=== PATIENT | male | born 2000 | race Two or more races ===

== ENCOUNTER 2022-10-18 16:42 | Inpatient (IN) | payer OTHER, SELFPAY ==
[2022-10-18] VITALS (7 sets, daily range): BP systolic 105–144; BP diastolic 64–90; PULSE 75–116; RESP 16–20; TEMP 36.4–36.7; O2SAT 96–99; BMI 20.5
--- OUTSIDE RECORDS SUMMARY | 2022-10-18 17:10 | XMS_ITS | Continuity of Care Document ---
:2000 Author Organization [facility] Address [address] [place] [address]- Care Team Providers Name Role Phone Not on Staff, PCP Primary Care Physician Unavailable Encounter [facility] Date(s): 05/07/22 - 05/14/22 [facility] [address], [place] [address] Attending Physician: Vivian Berger Allergies, Adverse Reactions, Alerts No Known Medication Allergies Medications ceftriaxone 500 mg injectable powder for injection = 500 mg, Intramuscular, Once, # 1.2 mL, 0 Refills, Soft Stop, 05/07/22 15:09:00 EDT Start Date: 05/07/22 Status: Ordereddoxycycline hyclate 100 mg oral capsule 1 capsule = 100 mg, By Mouth, Once, # 1 capsule, 0 Refills, Soft Stop, 05/07/22 15:11:00 EDT, Partial fill upon patient request if the prescription is for a schedule II opioid drug. Start Date: 05/07/22 Status: Ordered Vital Signs Most recent to oldest [Reference Range]: 1 Oxygen Saturation [94-100 %] 100 % (05/07/22 2:44 PM) Pulse Rate [55-90 bpm] 77 bpm (05/07/22 2:44 PM) Blood Pressure [90-138/55-84 mm Hg] 113/60 mm Hg (05/07/22 2:44 PM) Temperature [96.8-100.4 DegF] 97.7 DegF (05/07/22 2:44 PM) Blood pressure sites Arm, right (05/07/22 2:44 PM) Temperature Route Temporal (05/07/22 2:44 PM)
--- OUTSIDE RECORDS SUMMARY | 2022-10-18 17:10 | XMS_ITS | Continuity of Care Document ---
:2000 Author Organization [facility] Address [address] [place] [address]- Care Team Providers Name Role Phone Not on Staff, PCP Primary Care Physician Unavailable Encounter [facility] Date(s): 05/07/22 - 06/06/22 [facility] [address], [place] [address] Attending Physician: Jessica George Admitting Physician: Jessica George Referring Physician: Jessica George Allergies, Adverse Reactions, Alerts No Known Medication [...]
--- NOTE | 2022-10-18 17:19 | ED.PSYCH ---
HPI - Psych General Chief Complaint: Psychiatric Symptoms Stated Complaint: overdose 15 pills Time Seen by Provider: 10/18/22 17:00 Source: patient Mode of arrival: ambulatory Limitations: no limitations History of Present Illness HPI Narrative: Patient has history of depression felt suicidal took 15 tablets of 325 acetaminophen at 16:00 patient did for the 1st time no other medicine taken no complaints at this time no vomiting Related Data Allergies Allergy/AdvReac Type Severity Reaction Status Date / Time No Known Allergies Allergy Verified 10/18/22 17:26 Review of Systems Review of Systems: Yes all other systems are reviewed and are negative [facility] Social History Social History Advance Directives: No Advance Directives Information Provided: No Physical Exam Vital Signs: Vital Signs: Last Vital Signs Temp 97.8 F 10/18/22 21:53 Pulse 83 10/18/22 21:53 Resp 16 10/18/22 21:53 BP 105/64 10/18/22 21:53 Pulse Ox 97 10/18/22 21:53 O2 Del Method 10/18/22 21:53 BMI result Body Mass Index 20.5 Appearance: Alert. Oriented X3. No acute distress. Eyes: PERRLA, No Nystagmus ENT: Pharynx normal. Oral Mucosa moist Neck: Normal inspection. Neck supple. CVS: Normal heart rate and rhythm. Pulses normal. Respiratory: No respiratory distress. Equal air entry bilateral, no wheezing/rales/rhonchi Abdomen: Soft and nontender. Bowel sounds are present, no mass palpable, no CVA tenderness Skin: Skin warm and dry. Normal skin color. Normal skin turgor. Extremities: No lower extremity edema. No calf tenderness psych: Depressed no current suicidal ideation no hallucination/ delusion Neuro: Oriented X 3. No motor deficit. No sensory deficit.No cerebellar signs , cranial nerves II-XII intact Medications Administered Discontinued Medications Generic Name Dose Route Start Last Admin Trade Name Freq PRN Reason Stop Dose Admin Charcoal 50 gm 10/18/22 17:28 10/18/22 17:53 Activated Charcoal 50 Gm/240 Ml Oral.Susp PO 10/18/22 17:29 50 gm ONCE ONE Administration MDM - Psych MDM Narrative Medical decision making narrative: Patient with depression and suicidal feeling overdose on acetaminophen, nontoxic level medically cleared. Incidentally patient noticed to be COVID positive asymptomatic saturating 97 % on room air. Will consult in for evaluation Differential Diagnosis Differential diagnosis: Likely depression Lab Data Attestation: I reviewed the patient's lab results. Result diagrams: 10/18/22 18:10 10/18/22 18:10 Labs: Lab Results 10/18/22 10/18/22 10/18/22 Range/Units 17:47 17:47 18:10 WBC 9.9 (4.8-10.8) X10*3/uL RBC 5.07 (4.60-5.80) X10*6/uL Hgb 15.4 (14.0-18.0) g/dl Hct 44.5 (42.0-52.0) % MCV 87.8 (80.0-98.0) fL MCH 30.4 (27.0-33.0) pg MCHC 34.6 (31.0-36.0) g/dl RDW 12.0 (11.0-16.0) % Plt Count 221 (160-400) X10*3/uL MPV 10.9 (9.4-12.4) fL Immature Gran % (Auto) 0.3 (0.0-0.4) % Neut % (Auto) 76.6 H (45-73) % Lymph % (Auto) 13.8 L (20-40) % [place] % (Auto) 7.8 (2-11) % Eos % (Auto) 1.1 (0-4) % Baso % (Auto) 0.4 (0-2) % Lymph # (Auto) 1.4 (1.2-4.9) X10*3/uL [place] # (Auto) 0.8 (0.1-1.2) X10*3/uL Eos # (Auto) 0.1 (0.0-0.4) X10*3/uL Baso # (Auto) 0.0 (0.0-0.2) X10*3/uL Abs Immat Gran (auto) 0.03 (0.00-0.03) X10*3/uL Absolute Neuts (auto) 7.6 (2.0-8.3) x10*3/uL Absolute Nucleated RBC 0.000 (0.0-0.012) X10*3/uL Nucleated RBC % (auto) 0.0 (0.0-0.2) /100WBC Sodium (135-145) mmol/L Potassium (3.3-5.1) mmol/L Chloride (96-108) mmol/L Carbon Dioxide (22-29) mmol/L Anion Gap (12-20) BUN (9-16) mg/dL Creatinine (0.5-1.4) mg/dL Estim Creat Clear Calc Estimated GFR Random Glucose (60-115) mg/dL Calcium (8.4-10.2) mg/dL Total Bilirubin (0.0-1.0) mg/dL AST (5-37) U/L ALT (0-40) U/L Alkaline Phosphatase (39-117) U/L Total Protein (6.5-8.0) g/dL Albumin (3.5-5.0) g/dL Salicylates (15-30) mg/dL Urine Opiates Screen Not Detected (Not Detect) Urine Fentanyl Screen Not Detected (Not Detect) Acetaminophen (<30) mcg/mL Ur Barbiturates Screen Not Detected (Not Detect) Ur Phencyclidine Scrn Not Detected (Not Detect) Ur Amphetamines Screen Not Detected (Not Detect) U Benzodiazepines Scrn Not Detected (Not Detect) Urine Cocaine Screen Not Detected (Not Detect) U Marijuana (THC) Screen POSITIVE H (Not Detect) COVID-19 (YAMILET) Positive A (Negative) COVID-19 Clin Com See Note 10/18/22 10/18/22 Range/Units 18:10 20:20 WBC (4.8-10.8) X10*3/uL RBC (4.60-5.80) X10*6/uL Hgb (14.0-18.0) g/dl Hct (42.0-52.0) % MCV (80.0-98.0) fL MCH (27.0-33.0) pg MCHC (31.0-36.0) g/dl RDW (11.0-16.0) % Plt Count (160-400) X10*3/uL MPV (9.4-12.4) fL Immature Gran % (Auto) (0.0-0.4) % Neut % (Auto) (45-73) % Lymph % (Auto) (20-40) % [place] % (Auto) (2-11) % Eos % (Auto) (0-4) % Baso % (Auto) (0-2) % Lymph # (Auto) (1.2-4.9) X10*3/uL [place] # (Auto) (0.1-1.2) X10*3/uL Eos # (Auto) (0.0-0.4) X10*3/uL Baso # (Auto) (0.0-0.2) X10*3/uL Abs Immat Gran (auto) (0.00-0.03) X10*3/uL Absolute Neuts (auto) (2.0-8.3) x10*3/uL Absolute Nucleated RBC (0.0-0.012) X10*3/uL Nucleated RBC % (auto) (0.0-0.2) /100WBC Sodium 141 (135-145) mmol/L Potassium 4.8 (3.3-5.1) mmol/L Chloride 102 (96-108) mmol/L Carbon Dioxide 27 (22-29) mmol/L Anion Gap 17 (12-20) BUN 13 (9-16) mg/dL Creatinine 0.96 (0.5-1.4) mg/dL Estim Creat Clear Calc 92.9 Estimated GFR > 60 Random Glucose 90 (60-115) mg/dL Calcium 9.8 (8.4-10.2) mg/dL Total Bilirubin 0.6 (0.0-1.0) mg/dL AST 22 (5-37) U/L ALT 23 (0-40) U/L Alkaline Phosphatase 83 (39-117) U/L Total Protein 8.2 H (6.5-8.0) g/dL Albumin 4.8 (3.5-5.0) g/dL Salicylates < 5.0 L (15-30) mg/dL Urine Opiates Screen (Not Detect) Urine Fentanyl Screen (Not Detect) Acetaminophen 26 16 (<30) mcg/mL Ur Barbiturates Screen (Not Detect) Ur Phencyclidine Scrn (Not Detect) Ur Amphetamines Screen (Not Detect) U Benzodiazepines Scrn (Not Detect) Urine Cocaine Screen (Not Detect) U Marijuana (THC) Screen (Not Detect) COVID-19 (YAMILET) (Negative) COVID-19 Clin Com Discharge Plan Discharge Clinical Impression: Suicidal ideation, Depression, COVID-19 Patient Disposition: Still a Patient Interventions: [place]-Suicide Risk Severity Scale Last Done: 10/18/22 19:42
[2022-10-18] MEDS: Activated charcoaL 50 GM/240 ML ORAL.SUSP PO (17:53)
[2022-10-18 18:06] LABS: COVID-19 Test Positive (Negative); IDNOW Serial# 16C4AD1C
[2022-10-18 18:12] LABS: Amphetamine Screen Urine Not Detected (Not Detect); Barbiturates, Urine Not Detected (Not Detect); Benzodiazepines Screen Urine Not Detected (Not Detect); Cannabinoid Screen Urine POSITIVE (Not Detect); Cocaine Screen Urine Not Detected (Not Detect); Fentanyl, urine Not Detected (Not Detect); Opiate Screen Urine Not Detected (Not Detect); Phencyclidine Screen Urine Not Detected (Not Detect)
[2022-10-18 18:15] LABS: MANUAL DIFF FLAG NO
[2022-10-18 18:16] LABS: Basophils Percent Auto 0.4 % (0-2); Eosinophils Absolute Auto 0.1 X10*3/uL (0.0-0.4); Eosinophils Percent Auto 1.1 % (0-4); Hematocrit 44.5 % (42.0-52.0); Hemoglobin 15.4 g/dl (14.0-18.0); Imm Gran Abs Auto 0.03 X10*3/uL (0.00-0.03); Imm Gran Pct Auto 0.3 % (0.0-0.4); Lymphocytes Absolute Auto 1.4 X10*3/uL (1.2-4.9); Lymphocytes Percent Auto 13.8 % (20-40); Mean Corpuscular HGB Conc 34.6 g/dl (31.0-36.0); Mean Corpuscular Hemoglobin 30.4 pg (27.0-33.0); Mean Corpuscular Volume 87.8 fL (80.0-98.0); Mean Platelet Volume 10.9 fL (9.4-12.4); Monocytes Absolute Auto 0.8 X10*3/uL (0.1-1.2); Monocytes Percent Auto 7.8 % (2-11); Neutrophils Absolute Auto 7.6 x10*3/uL (2.0-8.3); Neutrophils Percent Auto 76.6 % (45-73); Platelet Count 221 X10*3/uL (160-400); Red Blood Count 5.07 X10*6/uL (4.60-5.80); White Blood Count 9.9 X10*3/uL (4.8-10.8)
[2022-10-18 19:09] LABS: Acetaminophen LAB 26 mcg/mL (<30); Alanine Aminotransferase 23 U/L (0-40); Albumin Level 4.8 g/dL (3.5-5.0); Alkaline Phosphatase 83 U/L (39-117); Anion Gap 17 (12-20); Aspartate Amino Transferase 22 U/L (5-37); Bilirubin Total 0.6 mg/dL (0.0-1.0); Blood Urea Nitrogen 13 mg/dL (9-16); Calcium 9.8 mg/dL (8.4-10.2); Carbon Dioxide 27 mmol/L (22-29); Chloride 102 mmol/L (96-108); Creatinine Clr Calc Pharmacy 92.9; Estimated Glomerular Filt Rate > 60; Glucose Random 90 mg/dL (60-115); Potassium 4.8 mmol/L (3.3-5.1); Salicylate < 5.0 mg/dL (15-30); Sodium 141 mmol/L (135-145); Total Protein 8.2 g/dL (6.5-8.0)
--- NOTE | 2022-10-18 19:51 | PC.NURSE ---
Care of patient assumed at 1900. He is alert, oriented x4, and calmly seated in stretcher within eyesight of 1:1 sitter. He endorses feelings of depression and admits to trying to end his life earlier by taking too many tylenol- him and his girlfriend recently broke up. Physically, patient states he feels good, vitals are stable. COVID + precautions in place- O2 saturations >96% on RA and patient denies SOB. He denies abdominal pain or nausea at this time as well. Safety maintained.
[2022-10-18 20:57] LABS: Acetaminophen LAB 16 mcg/mL (<30)
--- NOTE | 2022-10-18 21:33 | PC.NURSE ---
[facility] referral placed at this time by this RN.
--- NOTE | 2022-10-18 23:46 | PC.NURSE ---
This RN speaks with [facility] on the phone now- they are on their way to speak with the patient shortly.
--- NOTE | 2022-10-19 00:33 | PC.NURSE ---
DEBORAH bedside speaking with patient using drying tumbler operator now.
[2022-10-19 03:17] VITALS: RESP 16
--- NOTE | 2022-10-19 06:20 | PC.NURSE ---
Assumed care of patient.
[2022-10-19 09:59] VITALS: BP 138/90; PULSE 81; RESP 16; TEMP 36.6; O2SAT 97
--- NOTE | 2022-10-19 14:51 | PC.NURSE ---
Pt seen this date for individual OT tx. Upon approach pt presents exuberant, guarded, and superficial during brief interview with this typewriter operator automatic. Pt denies any SI stating I feel great! I'm ready to go home . Pt is pleasant and cooperative however does not with to continue conversation with this typewriter operator automatic. Pt happily excepts coloring pages, word finds, and sensory item. Pts attending nurse notified and aware of pts current mood.
[2022-10-20 00:35] VITALS: BP 130/64; PULSE 70; RESP 16; TEMP 36.3; O2SAT 97
--- NOTE | 2022-10-20 05:18 | PC.NURSE ---
Patient slept through the night, no distress observed/reported, behavior pleasant and in good control, COVID + follows quarantine direction appropriately, coherent thought process, patient is currently not on any medication, disposition per [facility] is section 12 inpatient bed search, pre-accepted to for 10/20/2022 per care team, VSS, will continue to monitor.
--- NOTE | 2022-10-20 16:00 | PC.NURSE ---
Nurse to nurse given
--- NOTE | 2022-10-20 19:06 | PC.ADMIT ---
Pt is a 22 year old male who arrived to on a cv status. Pt is covid + and tox screen + for THC. Per chart review, pt arrived to [facility] via public transportation secondary to taking 15 pills of Tylenol with the intent to kill himself. Pt reported that his relationship with his girlfriend recently ended and he has been experiencing personal issues for the last four months. During the admit, pt was clam and pleasant. Pt denied SI/HI/VH/AH. Pt understood that he was covid positive and wanted to do what he had to do in order to discharge. Provider notified and called for admission orders. Start treatment plan and monitor for safety.
[2022-10-21 08:57] LABS: Alanine Aminotransferase 20 U/L (0-40); Albumin Level 4.6 g/dL (3.5-5.0); Alkaline Phosphatase 77 U/L (39-117); Aspartate Amino Transferase 19 U/L (5-37); Bilirubin Direct 0.5 mg/dL (0.0-0.5); Bilirubin Total 1.5 mg/dL (0.0-1.0); Free T4 (Free Thyroxine) 1.14 ng/dL (0.71-1.85); Thyroid Stimulating Hormone 1.04 uIU/mL (0.32-4.0); Total Protein 7.9 g/dL (6.5-8.0)
[2022-10-21 09:11] LABS: Folate 15.5 ng/mL (> or = 4.0); Vitamin B12 603 pg/mL (200-900)
[2022-10-21 09:57] VITALS: BP 114/72; PULSE 95; RESP 18; TEMP 36.2; O2SAT 97
--- NOTE | 2022-10-21 10:06 | HO.PSYADMNOT ---
HPI Date of Service: 10/21/22 Chief Complaint: Suicide attempt Sources of Information: patient interviewed, chart reviewed and crisis/core team assessment reviewed HPI Subjective Notes: Alex Warning (given and understands) and Conditional Voluntary Narrative: Mr. Wyman is a 22 year-old male with no previous psych hx. Pt self presented to [facility] after taking intentional OD of 15 tablets of tylenol after argument with GF. In the ED- acetaminophen level wnl at 26, subsequent rechecked also wnl at 16mcg/ml. Utox is positive for cannabinoids. On the unit, Mr. Wyman reports that he had argument with GF. He now regrets intentional OD. He reports as soon as he took 15 tab of tylenol he realized that it had been impulsive, that he did not want to and took the public transportation to come to the hospital. Pt adamantly denies suicidal or homicidal ideation. He denies hx of suicide attempts. He denies feeling depressed or suicidal even prior to this incident. Pt denies problem sleeping or eating. He presents as future oriented in that he states he has too much to live for such as his family, plans in the future to become an artist (davis). He denies hx of hallucinations or s/s of hypomania or manuel. Past Psychiatric History: Inpt: none OP: none Past trials: none Hx of suicide attempt: none Medical Evaluation Reviewed: Yes + covid- denies SOB, no s/s of respiratory failure or distress. [facility] Family History: none Social History: Born in [place]. not , no children. recently broke up with GF. Substance History: reports using cannabis daily since age 13. Trauma History: denies. Diagnostics Vital Signs (24Hr): Vital Signs - 24 hr 10/21/22 09:57 Temperature 97.1 F Pulse Rate 95 Respiratory Rate 18 Blood Pressure 114/72 Pulse Oximetry 97 Oxygen Delivery Method Room Air BMI result Body Mass Index 20.5 Labs Results: 10/18/22 18:10 10/18/22 18:10 Labs: Laboratory Results - last 48 hr 10/21/22 10/21/22 07:32 07:32 Total Bilirubin 1.5 H Direct Bilirubin 0.5 AST 19 ALT 20 Alkaline Phosphatase 77 Total Protein 7.9 Albumin 4.6 Vitamin B12 603 Folate 15.5 TSH 1.04 Free T4 1.14 Meds/Allergies Meds Home Medications Medication Instructions Recorded Confirmed Type No Known Home Meds 10/19/22 10/19/22 History Allergies Allergies Allergy/AdvReac Type Severity Reaction Status Date / Time No Known Allergies Allergy Verified 10/18/22 17:26 Mental Status Exam Mental Status Exam Narrative: Appearance: wearing hospital gown, good hygiene, in NAD Behavior: cooperative Psychomotor: no agitation or retardation noted Speech: clear, normal rate/rhythm/volume, spontaneous TP: linear TC: no signs of psychosis, future oriented, regrets impulsive OD, wants to go home soon Mood: better Affect: congruent, brightens at times SI: adamantly denies HI: none VH/AH: none Delusions: none Insight/judgment: fair x 2. Memory/cog: alert, oriented x 3. grossly intact to conversational testing. Assessment & Plan Assessment & Plan (1) Adjustment disorder with anxiety: Status: Acute Code(s): F43.22 - Adjustment disorder with anxiety Plan Mr. Wyman is a 22 year-old male with no prior psych hx. He took public transportation to come to [facility] after he impulsively took intentional OD on 15 tabs of tylenol in context of recent break up with GF. In the ED- tylenol level wnl (initially 26, then 16 mcg/ml). No further medical complications. Pt adamantly denies suicidal ideation. Pt regrets what appears to be impulsive OD as pt reports as soon as he took the tablets he decided to come to the hospital. He presents as future oriented. We discussed risks, benefits and alternative treatment options. PLAN 1. admit to , CV, 15 minutes checks for safety 2. obtain collateral information 3. Aftercare planning. Patient educated on: diagnosis Reason for continued inpatient stay Substantial Risk for: harm to self
[2022-10-21 17:18] VITALS: BP 130/62; PULSE 85; TEMP 36.9; O2SAT 98
[2022-10-22 06:00] VITALS: BP 133/75; PULSE 98; RESP 18; TEMP 36.9; O2SAT 99
--- NOTE | 2022-10-22 12:46 | P.PNPSI_ITS ---
Subjective Subjective Date of Service: 10/22/22 Reason For Visit: Suicide attempt Subjective Notes: Conditional Voluntary Interim History: Pt reports feeling better. He reports he slept well. No SI/HI. He keeps reporting he regrets OD and that he has multiple reasons to be alive and grateful for. He reports sister is only support here in [place] and she is aware he is here and supportive. He denies any symptoms related to covid- no SOB, afebrile, no signs of respiratory distress. Medication Compliance: Yes Side effects from medications: No Attending Groups: No (due to covid) Review of Systems Review of Systems Yes all other systems are reviewed and are negative Constitutional: Reports no additional constitutional complaints Eyes: Reports no additional eye complaints Mental Status Exam Mental Status Exam Narrative: Appearance: wearing hospital gown, good hygiene, in NAD Behavior: cooperative Psychomotor: no agitation or retardation noted Speech: clear, normal rate/rhythm/volume, spontaneous TP: linear TC: no signs of psychosis, future oriented, regrets impulsive OD, wants to go home soon Mood: better Affect: congruent, brightens at times SI: adamantly denies HI: none VH/AH: none Delusions: none Insight/judgment: fair x 2. Memory/cog: alert, oriented x 3. grossly intact to conversational testing. Diagnostics Vital Signs (24Hr): Vital Signs - 24 hr 10/21/22 17:18 10/22/22 06:00 Temperature 98.4 F 98.4 F Pulse Rate 85 98 Respiratory Rate 18 Blood Pressure 130/62 133/75 Pulse Oximetry 98 99 Oxygen Delivery Method Room Air Room Air BMI result Body Mass Index 20.5 Labs Results: 10/18/22 18:10 10/18/22 18:10 Labs: Laboratory Results - last 48 hr 10/21/22 10/21/22 07:32 07:32 Total Bilirubin 1.5 H Direct Bilirubin 0.5 AST 19 ALT 20 Alkaline Phosphatase 77 Total Protein 7.9 Albumin 4.6 Vitamin B12 603 Folate 15.5 TSH 1.04 Free T4 1.14 Medications Medications Current Medications Acetaminophen (Acetaminophen 325 Mg Tablet) 650 mg PO Q6H PRN PRN Reason: Headache/Pain Mild Scale (1-3) Al Hydroxide/Mg Hydroxide (Magnesium Hydrox/Alum Hydrox 30 Ml Oral.Susp) 30 ml PO Q6H PRN PRN Reason: Heartburn/Nausea Hydroxyzine HCl (Hydroxyzine Hcl 25 Mg Tablet) 25 mg PO Q6H PRN PRN Reason: Anxiety Magnesium Hydroxide (Milk Of Magnesia 30 Ml Oral.Susp) 30 ml PO DAILY PRN PRN Reason: Constipation Nicotine Polacrilex (Nicotine Polacrilex 2 Mg Gum) 4 mg BUCCAL Q2H PRN PRN Reason: Nicotine Cravings Trazodone HCl (Trazodone Hcl 50 Mg Tablet) 50 mg PO BEDTIME PRN PRN Reason: Insomnia Allergies Allergies Allergy/AdvReac Type Severity Reaction Status Date / Time No Known Allergies Allergy Verified 10/18/22 17:26 Assessment & Plan Assessment & Plan (1) Adjustment disorder with anxiety: Status: Acute Code(s): F43.22 - Adjustment disorder with anxiety Plan Mr. Wyman is a 22 year-old male with no prior psych hx. He took public transportation to come to [facility] after he impulsively took intentional OD on 15 tabs of tylenol in context of recent break up with GF. In the ED- tylenol level wnl (initially 26, then 16 mcg/ml). No further medical complications. Pt adamant ly denies suicidal ideation. Pt regrets what appears to be impulsive OD as pt reports as soon as he took the tablets he decided to come to the hospital. He presents as future oriented. We discussed risks, benefits and alternative treatment options. PLAN 1. admit to M5, CV, 15 minutes checks for safety 2. obtain collateral information 3. Aftercare planning. 10/22 continue tx. collateral information and if no safety concern pt can be discharge soon. I spent minutes with the patient and/or on the patient floor today, greater than?50% of which was spent counseling/coordinating care. Reason for contiued inpatient stay Substantial Risk for: stable for discharge
[2022-10-22 18:00] VITALS: BP 103/59; PULSE 89; TEMP 36.7; O2SAT 95
[2022-10-22] MEDS: Acetaminophen 325 MG TABLET 650 MG PO (20:50)
[2022-10-23] MEDS: Acetaminophen 325 MG TABLET 650 MG PO ×4 (01:57→22:42)
[2022-10-23] MEDS: traZODone HCL 50 MG TABLET PO ×2 (01:57→22:42)
[2022-10-23 09:21] VITALS: BP 121/75; PULSE 86; RESP 18; TEMP 36.4; O2SAT 100
--- NOTE | 2022-10-23 10:00 | HO.PSYCHPN ---
Subjective Subjective Date of Service: 10/23/22 Reason For Visit: Suicide attempt Interim History: Patient seen and discussed with RN. PAtient seen in his room. He was upbeat and reported all he is thinking about is being discharged. He continues to be consistent in his report that his gesture was impulsive and that he regretted taking the medications and sought help minutes after he had the ingestion. Pt reports feeling better. He reports he slept well. No SI/HI. He denies any symptoms related to covid- no SOB, afebrile, no signs of respiratory distress. Review of Systems Review of Systems Yes all other systems are reviewed and are negative Constitutional: Reports no additional constitutional complaints Eyes: Reports no additional eye complaints Mental Status Exam Mental Status Exam Narrative: Appearance: wearing hospital gown, good hygiene, in NAD Behavior: cooperative Psychomotor: no agitation or retardation noted Speech: clear, normal rate/rhythm/volume, spontaneous TP: linear TC: no signs of psychosis, future oriented, regrets impulsive OD, wants to go home soon Mood: better Affect: congruent, brightens at times SI: adamantly denies HI: none VH/AH: none Delusions: none Insight/judgment: fair x 2. Memory/cog: alert, oriented x 3. grossly intact to conversational testing. Diagnostics Vital Signs (24Hr): Vital Signs - 24 hr 10/23/22 09:21 Temperature 97.6 F Pulse Rate 86 Respiratory Rate 18 Blood Pressure 121/75 Pulse Oximetry 100 Oxygen Delivery Method Room Air BMI result Body Mass Index 20.5 Labs Results: 10/18/22 18:10 10/18/22 18:10 Medications Medications Current Medications Acetaminophen (Acetaminophen 325 Mg Tablet) 650 mg PO Q6H PRN PRN Reason: Headache/Pain Mild Scale (1-3) Last Admin: 10/23/22 14:49 Dose: 650 mg Al Hydroxide/Mg Hydroxide (Magnesium Hydrox/Alum Hydrox 30 Ml Oral.Susp) 30 ml PO Q6H PRN PRN Reason: Heartburn/Nausea Benzocaine (Benzocaine 20 % Oral Gel 9 Gm Tube) 1 appl MUCOUS MEM QID PRN; Protocol PRN Reason: toothache Last Admin: 10/23/22 14:53 Dose: 1 appl Hydroxyzine HCl (Hydroxyzine Hcl 25 Mg Tablet) 25 mg PO Q6H PRN PRN Reason: Anxiety Magnesium Hydroxide (Milk Of Magnesia 30 Ml Oral.Susp) 30 ml PO DAILY PRN PRN Reason: Constipation Nicotine Polacrilex (Nicotine Polacrilex 2 Mg Gum) 4 mg BUCCAL Q2H PRN PRN Reason: Nicotine Cravings Trazodone HCl (Trazodone Hcl 50 Mg Tablet) 50 mg PO BEDTIME PRN PRN Reason: Insomnia Last Admin: 10/23/22 01:57 Dose: 50 mg Allergies Allergies Allergy/AdvReac Type Severity Reaction Status Date / Time No Known Allergies Allergy Verified 10/18/22 17:26 Assessment & Plan Assessment & Plan (1) Adjustment disorder with anxiety: Status: Acute Code(s): F43.22 - Adjustment disorder with anxiety Plan Mr. Wyman is a 22 year-old male with no prior psych hx. He took public transportation to come to [facility] [place] [place] [facility] after he impulsively took intentional OD on 15 tabs of tylenol in context of recent break up with GF. In the ED- tylenol level wnl (initially 26, then 16 mcg/ml). No further medical complications. Pt adamantly denies suicidal ideation. Pt regrets what appears to be impulsive OD as pt reports as soon as he took the tablets he decided to come to the hospital. He presents as future oriented. We discussed risks, benefits and alternative treatment options. PLAN 1. admit to M5, CV, 15 minutes checks for safety 2. obtain collateral information 3. Aftercare planning. 10/22 continue tx. collateral information and if no safety concern pt can be discharge soon. 10/23: Continue current treatment plan. I spent minutes with the patient and/or on the patient floor today, greater than?50% of which was spent counseling/coordinating care. Reason for contiued inpatient stay Substantial Risk for: harm to self
[2022-10-23] MEDS: Benzocaine 20 % Oral Gel 9 GM TUBE 1 APPL MUCOUS MEM (14:53)
[2022-10-24] MEDS: Acetaminophen 325 MG TABLET 650 MG PO ×2 (09:16→15:21)
[2022-10-24 09:20] VITALS: BP 147/67; PULSE 88; RESP 18; TEMP 36.4; O2SAT 97
--- NOTE | 2022-10-24 11:40 | HO.PSYCHPN ---
Subjective Subjective Date of Service: 10/24/22 Reason For Visit: Suicide attempt Interim History: Patient seen and discussed with RN. Patient seen in his room. He continues to be consistent in his report that his gesture was impulsive and that he regretted taking the medications and sought help minutes after he had the ingestion. Pt reports feeling better. He reports he slept well. No SI/HI. He denies any symptoms related to covid- no SOB, afebrile, no signs of respiratory distress. Review of Systems Review of Systems Yes all other systems are reviewed and are negative Constitutional: Reports no additional constitutional complaints Eyes: Reports no additional eye complaints Mental Status Exam Mental Status Exam Narrative: Appearance: wearing hospital gown, good hygiene, in NAD Behavior: cooperative Psychomotor: no agitation or retardation noted Speech: clear, normal rate/rhythm/volume, spontaneous TP: linear TC: no signs of psychosis, future oriented, regrets impulsive OD, wants to go home soon Mood: better Affect: congruent, brightens at times SI: adamantly denies HI: none VH/AH: none Delusions: none Insight/judgment: fair x 2. Memory/cog: alert, oriented x 3. grossly intact to conversational testing. Diagnostics Vital Signs (24Hr): Vital Signs - 24 hr 10/24/22 09:20 Temperature 97.6 F Pulse Rate 88 Respiratory Rate 18 Blood Pressure 147/67 H Pulse Oximetry 97 Oxygen Delivery Method Room Air BMI result Body Mass Index 20.5 Labs Results: 10/18/22 18:10 10/18/22 18:10 Medications Medications Current Medications Acetaminophen (Acetaminophen 325 Mg Tablet) 650 mg PO Q6H PRN PRN Reason: Headache/Pain Mild Scale (1-3) Last Admin: 10/24/22 15:21 Dose: 650 mg Al Hydroxide/Mg Hydroxide (Magnesium Hydrox/Alum Hydrox 30 Ml Oral.Susp) 30 ml PO Q6H PRN PRN Reason: Heartburn/Nausea Benzocaine (Benzocaine 20 % Oral Gel 9 Gm Tube) 1 appl MUCOUS MEM QID PRN; Protocol PRN Reason: toothache Last Admin: 10/23/22 14:53 Dose: 1 appl Hydroxyzine HCl (Hydroxyzine Hcl 25 Mg Tablet) 25 mg PO Q6H PRN PRN Reason: Anxiety Magnesium Hydroxide (Milk Of Magnesia 30 Ml Oral.Susp) 30 ml PO DAILY PRN PRN Reason: Constipation Nicotine Polacrilex (Nicotine Polacrilex 2 Mg Gum) 4 mg BUCCAL Q2H PRN PRN Reason: Nicotine Cravings Trazodone HCl (Trazodone Hcl 50 Mg Tablet) 50 mg PO BEDTIME PRN PRN Reason: Insomnia Last Admin: 10/24/22 19:26 Dose: 50 mg Allergies Allergies Allergy/AdvReac Type Severity Reaction Status Date / Time No Known Allergies Allergy Verified 10/18/22 17:26 Assessment & Plan Assessment & Plan (1) Adjustment disorder with anxiety: Status: Acute Code(s): F43.22 - Adjustment disorder with anxiety Plan Mr. Wyman is a 22 year-old male with no prior psych hx. He took public transportation to come to [facility] ED after he impulsively took intentional OD on 15 tabs of tylenol in context of recent break up with GF. In the ED- tylenol level wnl (initially 26, then 16 mcg/ml). No further medical complications. Pt adamantly denies suicidal ideation. Pt regrets what appears to be impulsive OD as pt reports as soon as he took the tablets he decided to come to the hospital. He presents as future oriented. We discussed risks, benefits and alternative treatment options. PLAN 1. admit to [facility], CV, 15 minutes checks for safety 2. obtain collateral information 3. Aftercare planning. 10/22 continue tx. collateral information and if no safety concern pt can be discharge soon. 10/23: Continue current treatment plan. 10/24: Continue current treatment plan. I spent minutes with the patient and/or on the patient floor today, greater than?50% of which was spent counseling/coordinating care. Reason for contiued inpatient stay Substantial Risk for: harm to self
[2022-10-24] MEDS: traZODone HCL 50 MG TABLET PO (19:26)
[2022-10-25] MEDS: traZODone HCL 50 MG TABLET PO ×2 (01:54→19:24)
[2022-10-25] MEDS: Acetaminophen 325 MG TABLET 650 MG PO ×3 (01:54→19:24)
[2022-10-25 06:00] VITALS: BP 118/68; PULSE 94; RESP 18; TEMP 36.9; O2SAT 97
--- NOTE | 2022-10-25 13:38 | P.PNPSI_ITS ---
Subjective Subjective Date of Service: 10/25/22 Reason For Visit: Suicide attempt Interim History: Initially patient seen by tag writer and social sciences department chair; followed up later with [place]-speaking staff Patient friendly and cooperative. No COVID symptoms. Patient says that his mood is good and he denies any depression saying that is fully resolved. He denies SI saying that to his fully resolved, as has been saying throughout his admission. Says he realizes now that it was ridiculous of him to get so upset over a break-up. He denies any other history of self-harm; denies any hx of AVH . Patient is hoping to discharge tomorrow and very much wants to get back to his job. He feels fine and ready to go. He does not feel the need for any medication as he says he is generally in a good mood; he is appreciative of the offered to set him up with a therapist however he again replies he does not feel any need for it. Patient will reach out for help if he ever again feels unsafe. Mental Status Exam Mental Status Exam Narrative: Pt is alert and oriented; behavior is cooperative, friendly and calm; patient is not in distress; dressed in casual attire with unkempt hair and scruffy facial hair but with adequate hygiene; mood is described as good and affect congruent, warm, friendly; eye contact appropriate; Speech is normal rate, volume and prosody and not pressured; no psychomotor agitation/retardation present; thought process is organized and goal directed; Thought content is on discharge; otherwise pertinent to relevant topics and without any delusional content, paranoid ideations or grandiosity; denies any SI/HI. Denies AVH; There is no evidence of perceptual disturbance. Patients insight and judgment are intact. Diagnostics Vital Signs (24Hr): Vital Signs - 24 hr 10/25/22 06:00 Temperature 98.4 F Pulse Rate 94 Respiratory Rate 18 Blood Pressure 118/68 Pulse Oximetry 97 Oxygen Delivery Method Room Air BMI result Body Mass Index 20.5 Labs Results: 10/18/22 18:10 10/18/22 18:10 Medications Medications Current Medications Acetaminophen (Acetaminophen 325 Mg Tablet) 650 mg PO Q6H PRN PRN Reason: Headache/Pain Mild Scale (1-3) Last Admin: 10/25/22 10:13 Dose: 650 mg Al Hydroxide/Mg Hydroxide (Magnesium Hydrox/Alum Hydrox 30 Ml Oral.Susp) 30 ml PO Q6H PRN PRN Reason: Heartburn/Nausea Benzocaine (Benzocaine 20 % Oral Gel 9 Gm Tube) 1 appl MUCOUS MEM QID PRN; Protocol PRN Reason: toothache Last Admin: 10/23/22 14:53 Dose: 1 appl Hydroxyzine HCl (Hydroxyzine Hcl 25 Mg Tablet) 25 mg PO Q6H PRN PRN Reason: Anxiety Magnesium Hydroxide (Milk Of Magnesia 30 Ml Oral.Susp) 30 ml PO DAILY PRN PRN Reason: Constipation Nicotine Polacrilex (Nicotine Polacrilex 2 Mg Gum) 4 mg BUCCAL Q2H PRN PRN Reason: Nicotine Cravings Trazodone HCl (Trazodone Hcl 50 Mg Tablet) 50 mg PO BEDTIME PRN PRN Reason: Insomnia Last Admin: 10/25/22 01:54 Dose: 50 mg Allergies Allergies Allergy/AdvReac Type Severity Reaction Status Date / Time No Known Allergies Allergy Verified 10/18/22 17:26 Assessment & Plan Assessment & Plan (1) Adjustment disorder with anxiety: Status: Acute Code(s): F43.22 - Adjustment disorder with anxiety Plan Mr. Wyman is a 22 year-old male with no prior psych hx. He took public transportation to come to [facility] ED after he impulsively took intentional OD on 15 tabs of tylenol in context of recent break up with GF. In the ED- tylenol level wnl (initially 26, then 16 mcg/ml). No further medical complications. Pt adamantly denies suicidal ideation. Pt regrets what appears to be impulsive OD as pt reports as soon as he took the tablets he decided to come to the hospital. He presents as future oriented. We discussed risks, benefits and alternative treatment options. 10/22 continue tx. collateral information and if no safety concern pt can be discharge soon. 10/23: Continue current treatment plan. 10/24: Continue current treatment plan. 10/25 patient remains in quarantine due to COVID however no symptoms and reports he is feeling well. Patient reports that his mood is good; he denies any depression or any SI and feels safe and ready to go home. Does not feel need for medication or therapy. Patient is pleasant, calm and friendly. He is eager to discharge so he can get back to work. He continues to reiterate that this attempt was impulsive and a mistake that he regrets. As mentioned in previous notes he immediately sought help immediately following the ingestion and self presented to the ED. Patient reports that he is sleeping and eating well. Patient is not in imminent risk of harm to self or others and his request for discharge honored. PLAN dc I spent minutes with the patient and/or on the patient floor today, greater than?50% of which was spent counseling/coordinating care. Patient educated on: diagnosis, medication risk/benefits and therapeutic strategies Informed Consent: understands Reason for contiued inpatient stay Substantial Risk for: stable for discharge
[2022-10-25 18:00] VITALS: BP 149/83; PULSE 102; TEMP 36.7; O2SAT 100
[2022-10-26 08:01] VITALS: BP 146/73; PULSE 87; RESP 16; TEMP 36.6; O2SAT 98
--- NOTE | 2022-10-26 09:14 | PM.PSYDC ---
DS: Providers Provider Date of Service: 10/26/22 Date of admission: 10/20/22 18:01 Date of discharge: 10/26/22 Primary care physician: Unknown Physician Admitting clinician: Shila Darby Attending physician on discharge: Karsten Villatoro DS: Diagnosis Discharge Diagnosis (1) Adjustment disorder with anxiety: Status: Acute DS: Medications Discharge Medications Home Medications: Home Medications Medication Instructions Recorded Confirmed No Known Home Meds 10/19/22 10/19/22 Mental Status Exam Mental Status Exam Narrative: Pt is alert and oriented; behavior is cooperative, friendly and calm; patient is not in distress; dressed in casual attire with unkempt hair and scruffy facial hair but with adequate hygiene; mood is described as good and affect congruent, warm, friendly; eye contact appropriate; Speech is normal rate, volume and prosody and not pressured; no psychomotor agitation/retardation present; thought process is organized and goal directed; Thought content is on discharge; otherwise pertinent to relevant topics and without any delusional content, paranoid ideations or grandiosity; denies any SI/HI. Denies AVH; There is no evidence of perceptual disturbance. Patients insight and judgment are intact. Data Data Completed and Pending Completed studies during hospitalization [Text1]: 10/21/22 10/21/22 07:32 07:32 Total Bilirubin 1.5 H Direct Bilirubin 0.5 AST 19 ALT 20 Alkaline Phosphatase 77 Total Protein 7.9 Albumin 4.6 Vitamin B12 603 Folate 15.5 TSH 1.04 Free T4 1.14 DS: Summary Hospital Course Hospital Course: HPI: Mr. Wyman is a 22 year-old male with no prior psych hx. He took public transportation to come to [facility] ED after he impulsively took intentional OD on 15 tabs of tylenol in context of recent break up with GF. In the ED- tylenol level wnl (initially 26, then 16 mcg/ml). No further medical complications. Pt adamantly denies suicidal ideation. Pt regrets what appears to be impulsive OD as pt reports as soon as he took the tablets he decided to come to the hospital. He presents as future oriented. We discussed risks, benefits and alternative treatment options. COVID positive and in isolation hospital course: Patient emotionality had already resolved by his admission; he said his mood is better any denied any SI at all. Patient remained in a good mood, friendly and cooperative throughout his admission; he was consistent in his report that his gesture was impulsive and that he regretted taking the medications and sought help minutes after he had the ingestion. He reported that overall he is in a good mood and did not feel a need to start medication; therapy an outpatient resources were also offered but patient politely declined saying he does not really feel need for them either. Patient continued to deny symptoms related to COVID; eating and sleeping well. He asked for discharge, feeling safe, ready to go and wanting to get back to work. Patient remained in good behavioral and impulse control throughout his stay; he was always pleasant, calm and friendly. It is likely that patient will intermittently struggle with high expressed emotion and impulsively; however, for now, he wants to navigate through this on his own. He has returned to his baseline, is without depression or SI and future oriented. He is no in imminent risk of harm to self or others and his request for discharge honored. 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, in full remission Referrals: Physician[facility] [Primary Care Provider] - 1 Week Discharge Medications: No Action No Known Home Meds Discharge Orders: Discharge Order (Routine); Ordered 10/26/22 Ordered By: Karsten Villatoro Diet: Regular diet Activity on Discharge: As tolerated Stand Alone Forms: Patient Portal Discharge page Care Plan Goals: Maintain mood and safe behaviors Take medications as prescribed Practice coping skills Continue with outpatient providers and reach out to them as needed Health Concerns: Mood stability and behaviors Plan of Treatment: Follow up with your Psychiatric provider and other outpatient providers regarding above concerns Take medications as prescribed Assessment: Risk assessment at time of discharge:? Patient was interviewed prior to discharge and found to be fully oriented and without any SI or HI. Patient has insight and demonstrates good judgment in terms of wanting to pursue treatment. Patient is not in imminent risk of harm to self or others and has a safety plan that includes presenting to the closest ER or calling 911 if feeling unsafe.? Patient has been observed closely by nursing and unit staff throughout admission; patient has not engaged in any behaviors that suggest dangerousness to self or others and has demonstrated appropriate behaviors and impulse control
== END 2022-10-26 14:29 | disposition home or self-care (01) | DRG 882 ==
LOC: HO.ED 10-20 07:27 → HO.PM5 10-20 18:17
PROVIDERS: Admitting Provider Psychiatry & Neurology Psychiatry; Emergency Provider Internal Medicine; Visit Provider Psychiatry & Neurology Psychiatry
DX: F43.22 Adjustment disorder with anxiety (principal); U07.1 COVID-19; R45.851 Suicidal ideations; F17.210 Nicotine dependence, cigarettes, uncomplicated; Z71.6 Tobacco abuse counseling
CPT/HCPCS: 36415; 80053; 80076; 80143; 80179; 80307; 82607; 82746; 84439; 84443; 85025; 87635; 99285

== ENCOUNTER 2022-12-23 23:08 | Emergency (ER) | payer SELFPAY ==
[2022-12-23 23:18] VITALS: BP 126/85; PULSE 84; RESP 15; TEMP 36.4; O2SAT 98; BMI 22.3
--- NOTE | 2022-12-24 00:33 | ED.DENTAL ---
HPI - Dental/Oral General Chief complaint: Dental/Oral Stated complaint: Dental pain Time Seen by Provider: 12/24/22 00:27 Source: patient Mode of arrival: ambulatory Limitations: no limitations History of Present Illness HPI Narrative: This is a 22-year-old male presenting to the emergency department with pain to his left lower molar, ongoing for 11 days, not resolving. Patient has not seen a dentist in a long time is scheduled to see a dentist today. Patient tells me he is here because the pain is intolerable. He denies any recent procedures to mouth. Denies fevers, chills, difficulty swallowing, changes in voice, chest pain, shortness of breath, nausea, vomiting, abdominal pain. Related Data Previous Rx's Medication Instructions Recorded amoxicillin 875 mg-potassium 1 tab PO BID 10 days #20 tabs 12/24/22 clavulanate 125 mg tablet ketorolac 10 mg tablet 10 mg PO TID PRN pain 5 days #15 12/24/22 tabs Allergies Allergy/AdvReac Type Severity Reaction Status Date / Time No Known Allergies Allergy Verified 10/18/22 17:26 Review of Systems Review of Systems: Constitutional : No Weight loss, No Fever, No Chills, No Fatigue, No Malaise ENT/Mouth : No sore throat, No Rhinorrhea, +Tooth pain Eyes: No Eye Pain, No Swelling, No Redness Cardiovascular : No Chest Pain, No SOB, No Dyspnea on Exertion, No Orthopnea, No Edema, No Palpitations Respiratory : No Cough, No Sputum, No Wheezing Gastrointestinal : No Nausea, No Vomiting, No Diarrhea, No Constipation, No abdominal Pain, No Hematochezia, No Melena Genitourinary : No Dysuria, No Urinary Frequency, No Hematuria, Musculoskeletal : No joint pain, No Myalgias, No Joint Swelling Skin : No Skin Lesions, No rash Neuro : No Weakness, No Numbness, No Dizziness, No Headache Psych : No Anxiety/Panic, No Depression All other systems reviewed and are negative Yes all other systems are reviewed and are negative [facility] Past Medical History Attestation statement: The following information was validated with the patient. Source: old records reviewed and nursing notes reviewed Social History Social History Household Members: Family Housing: Apartment Patient Tobacco Use Status: Current everyday Tobacco user Tobacco use type: Cigarette Cigarettes Per Day: 5 Second Hand Smoke Exposure: Yes Substance Use Type: Marijuana Advance Directives: No Advance Directives Information Provided: No service: No Sexual orientation: Straight/Heterosexual Physical Exam Vital Signs: Vital Signs: Last Vital Signs Temp 97.6 F 12/23/22 23:18 Pulse 84 12/23/22 23:18 Resp 15 12/23/22 23:18 BP 126/85 12/23/22 23:18 Pulse Ox 98 12/23/22 23:18 O2 Del Method 12/23/22 23:18 BMI result Body Mass Index 22.3 Vital signs stable Appearance: Alert.? Oriented X3.? No acute distress.? Patient is speaking in full sentences, controlling secretions well. Head: Normocephalic, atraumatic, no step-offs or deformities Eyes: Pupils equal, round and reactive to light.? ENT: Pharynx normal.?Uvula midline no abcess. + Pain w/ palpation of left lower second molar. No signs of abscess. Neck: Normal inspection.? Neck supple.? CVS: Normal heart rate and rhythm.? Pulses normal.? Respiratory: No respiratory distress.? Breath sounds normal.? Abdomen: Soft and nontender.? Skin: Skin warm and dry.? Normal skin color.? Normal skin turgor.? Extremities: No lower extremity edema.? No calf ttp. 5/5 strength to bilateral upper and lower extremities Neuro: Oriented X 3.? No motor deficit.? No sensory deficit. CN 2-12 intact Course Reevaluation(s) Reevaluation #1: Patient tolerated Toradol well. Will give Toradol p.o. and antibiotics. Will have him follow up with dentist. Educated patient on diagnosis and treatment plan, answered all question, patient verbalizes understanding. At this time patient will be discharged home, advised to return with new or worsening symptoms. Educated on worrisome signs and symptoms and when to return. At this time I feel comfortable discharge home. Time: 00:37 Medical Decision Making Medical Decision Making [facility] Narrative: 0035 This is a 22-year-old male presenting to the emergency department with complaints of tooth pain x 11 days progressively worsening. Has a dentist appointment on 12/24. Denies fevers and chills, changes in voice. Speaking in full sentences Physical exam Pain w/ palpation of left lower second molar. No signs of abscess. Likely dental pain unlikely abscess, osteomyelitis. Plan at this time discharged home with pain medicine Toradol and Augmentin. Will have him follow up with a dentist Differential Diagnosis Differential Diagnoses: The differential diagnosis associated with the presentation includes Likely dental pain unlikely abscess, osteomyelitis. Admission/Observation Consideration of admission/observation: Escalation of care including admission/observation considered Radiology Impression Discussion of test interpretation with radiology: I have reviewed the radiologist's reading. Prescription Management I considered prescription management with: Pain Medication (Toradol) and Antibiotic Core Measures AMI core measures followed: Yes Measure exclusions: not indicated Critical Care Time Critical Care Time Critical Care Time: No Discharge Plan Discharge Clinical Impression: Toothache Patient Disposition: Home, Self-Care Instructions: Toothache (ED) Additional Instructions: Take your medications as prescribed. If you were prescribed antibiotics today, it is important that you take your medication to their entirety, do not skip any doses, do not finish them early. Follow-up with your primary care provider this week. Return to the emergency department with new or worsening symptoms. Such as fevers, chills, chest pain, shortness of breath, nausea, vomiting, dizziness, headache, vision changes, lethargy, difficulty swallowing, difficulty controlling saliva, changes in voice In case of emergency call [phone] Follow up with a dentist if you dont have one you can call [facility] [phone] Toradol has been sent to your pharmacy, you tolerated this well in the department. Please take this as prescribed do not take this with ibuprofen, or other NSAIDs, do not mix this with alcohol. Side effects of this medication including increased risk for bleeding and possible kidney injury. Prescriptions: New amoxicillin-pot clavulanate 875-125 mg tablet 1 tab PO BID 10 Days Qty: 20 0RF ketorolac 10 mg tablet 10 mg PO TID PRN (Reason: pain) 5 Days Qty: 15 0RF Rx Instructions: Tolerated IM in the department
[2022-12-24] MEDS: Ketorolac Tromethamine 15 MG/ML VIAL 30 MG IM (00:48)
[2022-12-24] MEDS: Amoxicillin/Potassium Clav 875 MG TABLET PO (00:49)
--- NOTE | 2022-12-24 01:01 | PC.NURSE ---
Discharge instructions given/explained, ambulates safely/independently, no apparent distress, medicated on discharge, all questions answered
== END 2022-12-24 01:00 | disposition home or self-care (01) ==
PROVIDERS: Emergency Provider Internal Medicine
DX: K08.89 Other specified disorders of teeth and supporting structures (principal); F17.210 Nicotine dependence, cigarettes, uncomplicated; F12.90 Cannabis use, unspecified, uncomplicated
CPT/HCPCS: 96372; 99284; J1885